=== PATIENT | female | born 1945 | race Caucasian/White ===

== ENCOUNTER 2017-11-22 11:53 | Emergency (ER) | payer SELFPAY ==
[~2017-11-22] VITALS: Ht 160 cm; Wt 46.8 kg
[~2017-11-22 11:53] MED LIST: BACT800T5 PO; POLY10O EACH EYE; PRED20 PO; VENTAER INH
[2017-11-22 11:58] VITALS: BP 135/60; PULSE 85; RESP 16; TEMP 97.7; O2SAT 98
[2017-11-22 12:51] LABS: BILIRUBIN, URINE NEG (NEG); BLOOD, URINE SMALL (NEG); GLUCOSE,URINE NEG (NEG); KETONE, URINE NEG (NEG); NITRITE,URINE POS (NEG); URINE COLOR YELLOW (YELLW/STRAW); URINE LEUKOCYTE ESTERASE NEG (NEG)
[2017-11-22 13:00] LABS: BACTERIA, URINE MANY /hpf
[2017-11-22 13:01] LABS: SQUAMOUS EPITHELIAL CELL URINE 0-5 /hpf (0-5)
--- NOTE | 2017-11-22 13:47 | PD ---
HPI Chief Complaint: Complaint Time Seen by Provider: 13:43 Travel History International Travel<30 days: No Contact w/Intl Traveler<30days: No Traveled to known affect area: No History of Present Illness HPI Patient comes in complaining of cloudy urine ongoing for a while, she states while means the past couple weeks. Patient states that she has had ongoing frequency, urgency, dysuria and now over the last day or so hematuria. Patient rates the dysuria as a 3-5 out of 10 worse with voiding. Patient denies any alleviating or aggravating factors. Patient denies any associated factors such as fever, rash, nausea, vomiting, diarrhea, cough, chest pain, abdominal pain, flank pain. States allergy to penicillin Past medical history significant for hysterectomy, stress incontinence, active smoker half pack per day PFSH Past Medical History Genitourinary: Yes (STRESS INCONT) ?: Not Past Surgical History Hysterectomy: Yes Social History Alcohol Use: No Tobacco Use: Yes (06/07 ppd) Substance Use: No Allergies-Medications (Allergen,Severity, Reaction): Coded Allergies: penicillin G (Unverified Adverse Reaction, Mild, YEAST INFECTION, 11/22/17) Reported Meds & Prescriptions Reported Meds & Active Scripts Active No Active Prescriptions or Reported Medications Review of Systems General / Constitutional: No: Fever Eyes: No: Visual changes HENT: No: Headaches Cardiovascular: No: Chest Pain or Discomfort Respiratory: No: Shortness of Breath Gastrointestinal: No: Abdominal Pain Genitourinary: Positive: Urgency, Frequency, Dysuria, Hematuria Musculoskeletal: No: Pain Skin: No Rash Neurologic: No: Weakness Psychiatric: No: Depression Endocrine: No: Polydipsia Hematologic/Lymphatic: No: Easy Bruising Physical Exam Narrative GENERAL: SKIN: Warm and dry. HEAD: Atraumatic. Normocephalic. EYES: Pupils equal and round. No scleral icterus. No injection or drainage. ENT: No nasal bleeding or discharge. Mucous membranes pink and moist. NECK: Trachea midline. No JVD. CARDIOVASCULAR: Regular rate and rhythm. RESPIRATORY: No accessory muscle use. Clear to auscultation. Breath sounds equal bilaterally. GASTROINTESTINAL: Abdomen soft, non-tender, nondistended. MUSCULOSKELETAL: Extremities without clubbing, cyanosis, or edema. No obvious deformities. NEUROLOGICAL: Awake and alert. No obvious cranial nerve deficits. Motor grossly within normal limits. Five out of 5 muscle strength in the arms and legs. Normal speech. PSYCHIATRIC: Appropriate mood and affect; insight and judgment normal. Data Data Last Documented VS Vital Signs Date Time Temp Pulse Resp B/P (MAP) Pulse Ox O2 Delivery O2 Flow Rate FiO2 11/22/17 11:58 97.7 85 16 135/60 (85) 98 Orders Orders Urinalysis - C+S If Indicated (11/22/17 11:58) Urine Culture (11/22/17 12:43) Labs Laboratory Tests Test 11/22/17 12:43 Urine Collection Type VOIDED Urine Color YELLOW Urine Turbidity SL CLOUDY Urine pH 6.0 Urine Specific [place] 1.015 Urine Protein NEG mg/dL Urine Glucose (UA) NEG mg/dL Urine Ketones NEG mg/dL Urine Occult Blood SMALL Urine Nitrite POS Urine Bilirubin NEG Urine Urobilinogen 0.2 MG/DL Urine Leukocyte Esterase NEG Urine WBC 3-5 /hpf Urine Squamous Epithelial Cells 0-5 /hpf Urine Bacteria MANY /hpf Microscopic Urinalysis Comment CULTURE INDICATED Urine Collection Time 1243 MDM Medical Decision Making Medical Screen Exam Complete: Yes Emergency Medical Condition: Yes Medical Record Reviewed: Yes Differential Diagnosis Cystitis versus urinary incontinence versus Narrative Course UA is consistent with a UTI Diagnosis Primary Impression: UTI (urinary tract infection) Qualified Codes: N30.01 - Acute cystitis with hematuria Patient Instructions: General Instructions, Urinary Tract Infection in Women ( ED) Scripts Ondansetron Odt (Zofran Odt) 4 Mg Tab 4 MG SL Q6HR Y for Nausea/Vomiting, #8 TAB 0 Refills Prov: Main Hoskins MD 11/22/17 Ciprofloxacin (Cipro) 500 Mg Tab 500 MG PO BID for Infection for 10 Days, #20 TAB 0 Refills Prov: Main Hoskins MD 11/22/17 Disposition: 01 DISCHARGE HOME Condition: Stable Main Hoskins MD Nov 22, 2017 13:47
[2017-11-22] MEDS ORDERED: ZOFR4TAB3 SL (14:06)
[2017-11-22] MEDS ORDERED: CIPR-9 PO (14:06)
[2017-11-22] MEDS ORDERED: CIPROFLOXACIN 500 MG TAB PO ONE (14:15)
== END 2017-11-22 14:17 | disposition home or self-care (01) ==
LOC: PHED 11:53
DX: N30.01 Acute cystitis with hematuria (principal); B96.20 Unspecified Escherichia coli [E. coli] as the cause of diseases classified elsewhere; F17.210 Nicotine dependence, cigarettes, uncomplicated; Z16.11 Resistance to penicillins; Z16.29 Resistance to other single specified antibiotic
CPT/HCPCS: 81001; 87077; 87086; 87186; 99283